=== PATIENT | male | born 1960 | race African-American/Black ===

== ENCOUNTER 2022-04-13 15:09 | Inpatient (IN) | payer MEDICAID, OTHER ==
[~2022-04-13] VITALS: Ht 172.7 cm; Wt 73.0 kg
[2022-04-14] MEDS ORDERED: CLINDAMYCIN 600 MG in DEXTROSE 5% WATER 50 ML IV ONE (00:30)
[2022-04-14] MEDS ORDERED: SODIUM CHLORIDE 0.9% 1,000 ML IV ONE (00:30)
[2022-04-14] MEDS ORDERED: CLINDAMYCIN 600MG PREMIX 50 ML IV NR (00:30)
[2022-04-14 01:10] LABS: BASOPHILS % 0.4 % (0.0-2.0); EOSINOPHILS % 1.2 % (0.0-5.0); HEMATOCRIT. 34.2 % (42.0-52.0); HEMOGLOBIN. 11.4 g/dL (14.0-18.0); LYMPHOCYTES % 14.2 % (20.0-50.0); MEAN CORPUSCULAR HEMOGLOBIN 28.4 pg (28.0-32.0); MEAN CORPUSCULAR VOLUME 85.2 fL (80.0-94.0); MONOCYTES % 10.6 % (2.0-8.0); NEUTROPHILS % 73.6 % (40.0-76.0); PLATELET 310 x1000/uL (130-400); RED BLOOD CELL COUNT 4.01 mill/uL (4.7-6.1); RED CELL DISTRIBUTION WIDTH 15.7 % (11.6-14.6)
[2022-04-14 01:15] LABS: CHLORIDE 104 mEq/L (98-107)
[2022-04-14] MEDS ORDERED: IOHEXOL-300 100 ML BOTTLE ONE (03:48)
[2022-04-14] MEDS ORDERED: ACETAMINOPHEN 325MG TABLET PO PRN (07:15)
[2022-04-14] MEDS ORDERED: GUAIFENESIN 200MG/10ML SUGAR FREE UDC PO PRN (07:15)
[2022-04-14] MEDS ORDERED: MAGNESIUM/ALUMINUM HYDROXIDE/SIMETHICONE 30ML UDC PO PRN (07:15)
[2022-04-14] MEDS ORDERED: ONDANSETRON HCL 4MG/2ML INJ IV PRN (07:15)
[2022-04-14] MEDS ORDERED: HYDROCODONE/ACETAMINOPHEN 5/325MG TABLET PO PRN (07:15)
[2022-04-14] MEDS ORDERED: DOCUSATE SODIUM 100MG CAPSULE PO PRN (07:15)
[2022-04-14] MEDS ORDERED: NALOXONE HCL 0.4MG/ML VIAL IV PRN (07:45)
[2022-04-14 08:15] VITALS: BP 156/104
[2022-04-14] MEDS ORDERED: CLINDAMYCIN 600MG PREMIX 50 ML IV SCH (09:30)
[2022-04-14] MEDS: AMLODIPINE 10MG TABLET PO SCH (10:19)
[2022-04-14] MEDS: ENOXAPARIN 40MG/0.4ML SYR SUBCUT SCH (10:20)
[2022-04-14 10:43] VITALS: BP 156/104
[2022-04-14] MEDS ORDERED: METF-873 PO (11:42)
[2022-04-14] MEDS: CLINDAMYCIN 600MG PREMIX 50 ML IV SCH ×2 (11:58→18:15)
[2022-04-14 12:00] VITALS: BP 157/103
[2022-04-14 16:00] VITALS: BP 153/101
[2022-04-14] MEDS ORDERED: DEXTROSE 50% WATER 50ML SYRINGE IV PRN (18:00)
[2022-04-14] MEDS: BLOOD SUGAR DIAGNOSTIC STRIP TEST SCH ×2 (18:16→20:23)
[2022-04-14] MEDS: INSULIN LISPRO 100 UNITS/ML SUBCUT SCH ×2 (18:22→20:32)
[2022-04-14] MEDS ORDERED: HYDRALAZINE 20MG/ML VIAL IV PRN (18:30)
[2022-04-14 20:00] VITALS: BP 160/100
[2022-04-15] VITALS: BP 145/90
[2022-04-15] MEDS: CLINDAMYCIN 600MG PREMIX 50 ML IV SCH (03:28)
[2022-04-15 04:00] VITALS: BP 135/86
[2022-04-15 06:25] LABS: CLARITY URINE CLEAR (CLEAR); COLOR URINE YELLOW (YELLOW); KETONES URINE NEGATIVE (NEGATIVE); LEUKOCYTE ESTERASE URINE NEGATIVE (NEGATIVE); NITRITE URINE NEGATIVE (NEGATIVE); OCCULT BLOOD URINE NEGATIVE (NEGATIVE); PH URINE 7.5 (4.5-8.0); PROTEIN URINE NEGATIVE (NEGATIVE); SPECIFIC GRAVITY URINE 1.015 (1.005-1.030)
[2022-04-15] MEDS: PANTOPRAZOLE 40MG DR TABLET PO SCH (07:20)
[2022-04-15] MEDS: INSULIN LISPRO 100 UNITS/ML SUBCUT SCH ×4 (07:50→21:00)
[2022-04-15] MEDS: BLOOD SUGAR DIAGNOSTIC STRIP TEST SCH ×4 (08:15→21:35)
[2022-04-15] MEDS: ENOXAPARIN 40MG/0.4ML SYR SUBCUT SCH (09:00)
[2022-04-15] MEDS: AMLODIPINE 10MG TABLET PO SCH (09:00)
[2022-04-15] MEDS ORDERED: PANTOPRAZOLE SODIUM 40 MG/VIAL IV SCH (09:00)
[2022-04-15] MEDS: DOXYCYCLINE HYCLATE 100MG CAPSULE PO SCH (11:45)
[2022-04-15 16:00] VITALS: BP 130/83
[2022-04-16] VITALS: BP 143/75
[2022-04-16] MEDS: TRAMADOL 50MG TABLET PO PRN ×3 (02:01→19:47)
[2022-04-16] MEDS: PANTOPRAZOLE 40MG DR TABLET PO SCH (07:20)
[2022-04-16] MEDS: BLOOD SUGAR DIAGNOSTIC STRIP TEST SCH ×4 (07:20→21:00)
[2022-04-16] MEDS: INSULIN LISPRO 100 UNITS/ML SUBCUT SCH ×4 (07:27→21:00)
[2022-04-16 08:00] VITALS: BP 130/65
[2022-04-16] MEDS: AMLODIPINE 10MG TABLET PO SCH (11:31)
[2022-04-16] MEDS: DOXYCYCLINE HYCLATE 100MG CAPSULE PO SCH (11:32)
[2022-04-16] MEDS: ENOXAPARIN 40MG/0.4ML SYR SUBCUT SCH (11:33)
[2022-04-16 12:00] VITALS: BP 129/65
[2022-04-16 16:00] VITALS: BP 127/80
[2022-04-16] MEDS ORDERED: VANCOMYCIN 1000MG/20ML ORAL SOLN PO SCH (18:00)
[2022-04-16 19:04] LABS: BASOPHILS % 0.9 % (0.0-2.0); EOSINOPHILS % 4.5 % (0.0-5.0); HEMATOCRIT. 37.2 % (42.0-52.0); LYMPHOCYTES % 26.8 % (20.0-50.0); MEAN CORPUSCULAR HEMOGLOBIN 27.6 pg (28.0-32.0); MEAN CORPUSCULAR VOLUME 85.8 fL (80.0-94.0); MEAN PLATELET VOLUME 7.9 fl (7.4-10.4); MONOCYTES % 13.4 % (2.0-8.0); NEUTROPHILS % 54.4 % (40.0-76.0); PLATELET 359 x1000/uL (130-400); RED BLOOD CELL COUNT 4.33 mill/uL (4.7-6.1); RED CELL DISTRIBUTION WIDTH 15.6 % (11.6-14.6)
[2022-04-16 19:08] LABS: CHLORIDE 100 mEq/L (98-107)
[2022-04-16 19:15] LABS: ETHANOL BLOOD < 10 mg/dL; LDL CHOLESTEROL 84 mg/dL (5-100)
[2022-04-16 19:18] LABS: HDL CHOLESTEROL 55 mg/dL (40-59)
[2022-04-16] MEDS ORDERED: FAMOTIDINE 20MG TABLET PO SCH (21:00)
[2022-04-16] MEDS ORDERED: MUPIROCIN 2% OINT 22GM NS SCH (21:00)
[2022-04-17 04:00] VITALS: BP 139/91
[2022-04-17] MEDS: TRAMADOL 50MG TABLET PO PRN (05:36)
[2022-04-17 05:41] VITALS: BP 139/91
[2022-04-17] MEDS: BLOOD SUGAR DIAGNOSTIC STRIP TEST SCH (06:44)
== END 2022-04-17 06:30 | disposition home or self-care (01) | DRG 383 ==
LOC: ER 15:09 → 6WST 04-14 04:44
PROVIDERS: ADMIT Hospitalist; ATTEND Hospitalist
DX: L02.01 Cutaneous abscess of face (principal); E11.9 Type 2 diabetes mellitus without complications; F10.10 Alcohol abuse, uncomplicated; I25.10 Atherosclerotic heart disease of native coronary artery without angina pectoris; I10 Essential (primary) hypertension; F20.9 Schizophrenia, unspecified; J43.9 Emphysema, unspecified; F31.9 Bipolar disorder, unspecified; F17.210 Nicotine dependence, cigarettes, uncomplicated; Z79.84 Long term (current) use of oral hypoglycemic drugs; Z88.0 Allergy status to penicillin; Z87.01 Personal history of pneumonia (recurrent); Z71.6 Tobacco abuse counseling
CPT/HCPCS: 36415; 70491; 80053; 80061; 80320; 81003; 82962; 83036; 85025; 99285; J0360; J1650; J1815; J3490; J7030; J7060; Q9967; G0480